=== PATIENT | female | born 1945 | race Two or more races ===

== ENCOUNTER 2019-01-29 13:34 | Emergency (ER) | payer MEDICARE ==
[~2019-01-29] VITALS: Ht 170.2 cm; Wt 68.0 kg
--- NOTE | 2019-01-29 13:37 | NUR ---
PT CHEPE, FROM [facility], FOR HIGH BP 194/100, PT IS AAOX4, NOT IN RESPIRATORY DISTRESS, HOOKED TO CAFE MANAGER, KEPT RESTED AND COMFORTABLE, WILL CONTINUE TO MONITOR.
--- NOTE | 2019-01-29 13:39 | NUR ---
SEEN AND EXAMINED BY .
--- NOTE | 2019-01-29 13:42 | NUR ---
BEADING SAWYER AT BEDSIDE FOR XRAY.
--- NOTE | 2019-01-29 13:49 | NUR ---
IV LINE ESTABLISHED, BLOOD DRAWN AND SENT TO LAB.
[2019-01-29 13:53] LABS: BASOPHILS # (AUTO) 0.1 /CMM (0.0-0.2); BASOPHILS % (AUTO) 2.2 % (0.0-2.0); EOSINOPHILS % (AUTO) 0.7 % (0.0-6.0); HEMATOCRIT 40 % (33-45); LYMPHOCYTES # (AUTO) 1.5 /CMM (0.8-4.8); LYMPHOCYTES % (AUTO) 32.1 % (20.0-44.0); MEAN CORPUSCULAR HGB CONC 33 g/dl (31.0-36.0); MEAN CORPUSCULAR VOLUME 90 fL (82-100); MONOCYTES # (AUTO) 0.4 /CMM (0.1-1.30); MONOCYTES % (AUTO) 8.1 % (2.0-12.0); NEUTROPHILS # (AUTO) 2.7 /CMM (1.8-8.9); NEUTROPHILS % (AUTO) 56.9 % (43.0-81.0); PLATELET COUNT (AUTO) 314 /CMM (150-450); RED BLOOD CELL COUNT(AUTO) 4.42 MIL/uL (4.0-5.2); WHITE BLOOD COUNT (AUTO) 4.7 K/uL (4.3-11.0)
[2019-01-29 14:00] LABS: CALCIUM, SERUM 9.8 mg/dL (8.5-10.1); CARBON DIOXIDE 28 mmol/L (21-32); CHLORIDE 103 mmol/L (98-107); CREATININE 0.8 mg/dL (0.6-1.3); GLUCOSE 126 mg/dL (74-106); POTASSIUM 3.9 mmol/L (3.5-5.1); SODIUM SERUM 138 mmol/L (136-145); UREA NITROGEN, BLOOD 14 mg/dL (7-18)
--- NOTE | 2019-01-29 14:08 | NUR ---
AT BEDSIDE FOR EVAL.
[2019-01-29] MEDS ORDERED: BENAZEPRIL HCL 10 MG TABLET PO ONE (14:30)
[2019-01-29] MEDS ORDERED: BENAZEPRIL HCL 10 MG TABLET ONE (14:32)
[2019-01-29 15:48] VITALS: BP 142/75
--- NOTE | 2019-01-29 15:48 | NUR ---
IV removed. Catheter intact and site benign. Pressure and 4x4 applied to site. No bleeding noted. Patient discharged to home in stable condition. Written and verbal after care instructions given. Patient verbalizes understanding of instruction.
== END 2019-01-29 15:49 | disposition home or self-care (01) ==
LOC: ER 13:36
DX: I10 Essential (primary) hypertension (principal); R51 Headache; Z60.2 Problems related to living alone
CPT/HCPCS: 36415; 71045-TC; 80048-TC; 84484-TC; 85025-TC